=== PATIENT | male | born 1965 | race Hispanic/Latino ===

== ENCOUNTER 2017-05-22 18:58 | Emergency (ER) | payer OTHER ==
[~2017-05-22] VITALS: Ht 170.2 cm; Wt 94.5 kg
[~2017-05-22 18:58] MED LIST: OMEP20TA86 PO; ONDA4TAB12 PO; OXYC20OR15 PO; POLY17PO6 PO; RANI150T11 PO
[2017-05-22 19:17] VITALS: BP 163/81; PULSE 74; RESP 16; O2SAT 100
--- NOTE | 2017-05-22 20:36 | ED.REPORT ---
HPI-Extremity Problem Lower Date of Service May 22, 2017 ED Provider: Maurilio Gonzalez MD The pt is a 51 y/o male w/ a hx of gout, and hyperlipidemia presenting to the ED c/o LLE pain onset 3 days ago. The pain is described as severe and has decreased his ROM. It usually affects him from his knee to great toe w/ occasional shooting pain up to his buttock. Nothing makes the pain worse. There was no trauma to cause the pain and the pain came out of the blue. Denies numbness or weakness. The pt has had gout in the past, but primarily in the feet and never in the knees. Nursing Notes Stated Complaint: PAINFUL LEFT LEG Chief Complaint: LLE pain Nursing Notes Reviewed: Yes (MeetMoi not reconciled) Allergies: Coded Allergies: No Known Allergies (Verified Allergy, Unknown, 05/22/17) Scheduled Omeprazole (Omeprazole) 20 Mg Tablet.dr 20 MG PO DAILY Polyethylene Glycol 3350 (Miralax) 17 Gm Powd.pack 17 GM PO DAILY Ranitidine (Zantac) 150 Mg Tablet 300 MG PO HS Scheduled PRN Hydrocodone-Acetaminophen 5-325 mg (Hydrocodone-Acetaminophen 5-325 mg) 1 Each Tablet 1-2 TABLET PO Q6H PRN PRN For Pain Ondansetron ODT (Ondansetron ODT) 4 Mg Tab.rapdis 4 MG PO Q6H PRN PRN For Nausea oxyCODONE Concentrate (oxyCODONE Concentrate) 20 Mg/1 Ml Oral.conc 5-10 MG PO Q4H PRN PRN For Severe Pain General Time Seen by MD: 20:35 Chief Complaint Other (LLE pain ) Hx Obtained From: Patient Arrived By: Walk-in Onset Occurred: 3 days ago Symptom Duration: Since onset Recent Healthcare: No recent doctor visit, No recent hospitalization Similar Sx Previous: No Past Medical History Past Medical History Hx rectal bleed sleep apnea Hernadez's esophagus Hypercholesterolemia Gout GERD Past Surgical History Appendectomy EGD Smoking History Former Smoker Social History Patient has significant history of alcohol use. Alcohol Use: "Social" Drug Use: Denies drug use Other Social History: Good social support Ambulatory Status Independent Review of Systems Decreased ROM of LLE; Musculoskeletal: Reports: Extremity pain (LLE) Neurologic: Denies: Numbness, Weakness Complete sys rev & neg: except as marked. Physical Exam Initial Vital Signs Vital Signs (First) Date Time Temp Pulse Resp B/P Pulse Ox O2 Delivery O2 Flow Rate FiO2 05/22/17 19:17 36.7 74 16 163/81 100 Initial VS: Reviewed, Vital signs normal Head / Eyes: Atraumatic, Normocephalic, PERRL ENT: Mucous membranes moist, Conjunctiva normal, No scleral icterus Neck: Supple, Non-tender, Full range of motion Respiratory: Breath sounds normal, Clear to auscultation, No respiratory distress Cardiovascular: Regular rate & rhythm, Heart sounds normal, Intact distal pulses Upper Extremities: Vascular intact, Neuro intact, No swelling, No tenderness Skin: Warm, Dry, No cyanosis Neurologic: Alert, Oriented, Nonfocal Psychiatric: Mood/affect normal, Behavior normal, Normal thought content Lower Extremity / Pelvis / MS: No deformity LLE tenderness; No effusion, warmth, or overt findings of gout; No swelling; Negative straight leg raise; Neurovascular intact; Ankle / Foot: Full range of motion, No deformity General/Constitutional: Awake, Alert Appearance / Presentation: Positive: Uncomfortable Interpretation & Diagnostics PROCEDURE: US VEINOUS LEG DUPLEX UNILATERAL, LEFT IMPRESSION: No evidence of left lower extremity DVT. X-Ray Interpretation Xray Interpretation: IMPRESSION: No acute fracture. No osseous lesion. If clinical suspicion and/or symptoms persist, further assessment with repeat plainfilms, or advanced imaging (e.g., CT, MRI, or bone scan) may be helpful for further assessment. Dictated by: Carlos Finney M.D. on 05/22/2017 at 21:24 Approved by: Carlos Finney M.D. on 05/22/2017 at 21:25 X-Ray Ordered: Knee left Interpretation / Wet Read by: Interpret - Radiologist Re-Eval/Medical Decision Med Decision/Clinical Course This is a 51-year-old male presents with acute onset of nontraumatic left leg pain, mostly in the left calf. Shortly he does extend above the knee. But also can involve the knee. Movement is painful. He denies chest pain, shortness breath, trauma, redness, swelling. He has had gout, but is always involved the dagger in the great toe redness swelling and warmth. He's had no effusion. He denies numbness, weakness paresthesias, denies classic sciatic-type description of shooting pain down the legs, and lies back pain bowel or bladder dysfunction. On exam he is uncomfortable, is tender to touch of the calf, and knee-there is no swelling, erythema in the leg is neurovascularly intact. Straight leg raise is negative, plantar flexion dorsiflexion attack of the has some discomfort in the calf with this. He has some decreased range of motion of the left knee, but again has no effusion, laxity. Overall presentation somewhat atypical. He has no overt risk factors for DVT, given the nontraumatic onset of pain location discomfort, ultrasound lower extremity was obtained and was negative. Plan regress the left knee were obtained and were negative. There is no effusion, redness or findings to suggest a septic joint made for attempted arthrocentesis. His symptoms and presentation are very atypical for sciatica, but it is in the differential given the absence of other findings. On indication for additional testing. He received a dose of pain medicine with improvement, still having some symptoms. He is discharged with some ibuprofen and hydrocodone and need for follow-up. Aubree return precautions reviewed. Source of Hx: Old records Re-Evaluation/Progress : Time of Eval: 22:15 Re-Evaluation/Progress Note: Pt rechecked. Informed pt of plan for treatment. Pt understands and agrees with plan for treatment. F/U instructions and RTER warnings given. All questions addressed. Differential Diagnosis: Negative: Abrasion, Abscess, Achilles tendon rupture, Fracture, Greater trochant fracture, Hip fracture, Knee disloc ant, Knee disloc post, Knee effusion, Knee ligament injury, Lesser trochant fracture, Plantar warts, Plantaris rupture, Proximal tibia fracture, Venous thromboembolism Counseled Regarding: Diagnosis, Lab results, Need for follow-up, When/why to return to ED Discharge & Departure Impression: Primary Impression: Left leg pain Disposition: Home Discharge Condition All VS Reviewed: Yes Condition: Stable Additional Instructions: 1. A dangerous cause of the left leg pain was not identified. 2. The ultrasound was negative for a blood clot (DVT) and the Xray of the knee was normal. 3. Activities as tolerated. 4. Continue naproxen 500mg up to twice a day (with food) 5. If needed for more severe pain take hydrocodone/APAP 5/325 1-2 tabs up to every 4-6 hours. NOTE: This medication contains a narcotic and causes drowsiness. Use sparingly. NO driving for at least 4 hours after taking 6. Call for an appointment with Dr. Castillo. 7. Return if new or worsening symptoms. Google Translate 1. No se identific raul causa peligrosa del dolor en la [place] maryda. 2. El ultrasonido fue negativo para un cogulo sanguneo (TVP) y la radiografa de la rodilla era normal. 3. Actividades haleigh toleradas. 4. Siga naproxen 500mg hasta dos veces al da (con comida) 5. Si es necesario para un dolor ms intenso, tome hidrocodona / APAP 5/325 1-2 lengetas hasta cada 4-6 horas. NOTA: Jenniffer medicamento contiene un narctico y causa somnolencia. Utilizar con moderacin. NO manejar bubba al menos 4 horas despus de jaison 6. Llame para raul markus con el Dr. Castillo. 7. Regresar si hay sntomas nuevos o que empeoran. Referrals: Janna Castillo MD Scribe Attestation Portions of this note were transcribed by Vargas Gerber. I, Dr. Gonzalez personally performed the history, physical exam and medical decision-making; I reviewed and confirmed the accuracy of the information in the transcribed note. copies to: Janna Castillo MD, Matthew F MD May 22, 2017 20:36 Vargas Gerber May 22, 2017 20:59
[2017-05-22] MEDS ORDERED: Ondansetron 8 mg ODT Tablet PO ONE (20:55)
[2017-05-22] MEDS ORDERED: HYDROmorphone 1 mg/mL Inj IM ONE (20:55)
--- NOTE | 2017-05-22 21:26 | DRSVH ---
PROCEDURE: X-RAY LEFT KNEE, THREE VIEWS ([id number]) INDICATIONS: pain KNEE TECHNIQUE: 3 views of the knee were acquired. COMPARISON: None. FINDINGS: Bones: No fractures or dislocations. No suspicious bony lesions. Soft tissues: No joint effusion. No suspicious soft tissue calcifications. IMPRESSION: No acute fracture. No osseous lesion. If clinical suspicion and/or symptoms persist, fur ther assessment with repeat plainfilms, or advanced imaging (e.g., CT, MRI, or bone scan) may be help ful for further assessment. Dictated by: Carlos Finney M.D. on 05/22/2017 at 21:24 Approved by: Carlos Finney M.D. on 05/22/2017 at 21:25
--- NOTE | 2017-05-22 21:58 | DRSVH ---
PROCEDURE: US VEINOUS LEG DUPLEX UNILATERAL, LEFT INDICATIONS: Pain ro DVT TECHNIQUE: Real-time imaging, as well as color and pulse Doppler interrogation, were performed of the lower extr emity deep veins from the inguinal ligament to the popliteal fossa. COMPARISON: None. FINDINGS: The deep veins are normally compressible, and free of intraluminal thrombus. Color and pu lse Doppler demonstrate normal phasic intraluminal flow. There is normal augmentation response to di stal compression maneuver. IMPRESSION: No evidence of left lower extremity DVT. Dictated by: Carlos Finney M.D. on 05/22/2017 at 21:56 Approved by: Carlos Finney M.D. on 05/22/2017 at 21:57
[2017-05-22] MEDS ORDERED: _HYDROcodone/APAP 5-325 mg Tablet PO PRN (22:10)
[2017-05-22] MEDS ORDERED: HYDR-4003 PO (22:48)
[2017-05-22 22:55] VITALS: BP 141/80; PULSE 67; RESP 20; O2SAT 95
== END 2017-05-22 22:57 | disposition home or self-care (01) ==
LOC: SED 18:58
DX: M79.662 Pain in left lower leg (principal); K21.9 Gastro-esophageal reflux disease without esophagitis; Z87.891 Personal history of nicotine dependence
CPT/HCPCS: 73562; 93970; 96372; 99284; J1170